=== PATIENT | female | born 2000 | race Caucasian/White ===

== ENCOUNTER 2023-06-29 12:34 | Outpatient (CLI) | payer BC, SELFPAY | END 2023-06-29 12:35 | disposition home or self-care (01) | PROVIDERS: Visit Provider Nurse Practitioner Family | DX: Z00.00 Encounter for general adult medical examination without abnormal findings (principal); R42 Dizziness and giddiness | CPT/HCPCS: 82728; 83540; 83550; 84443 ==

== ENCOUNTER 2024-12-05 10:22 | Outpatient (CLI) | payer BC, SELFPAY | END 2024-12-05 10:23 | disposition home or self-care (01) | PROVIDERS: PCP Emergency Medicine; Visit Provider Emergency Medicine | DX: Z12.4 Encounter for screening for malignant neoplasm of cervix (principal); Z11.1 Encounter for screening for respiratory tuberculosis | CPT/HCPCS: 86480; 87624; 87625; 88141; 88142 ==